=== PATIENT | female | born 2005 | race Caucasian/White ===

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

== ENCOUNTER → 2024-01-06 | Outpatient (CLI) | payer OTHER, SELFPAY ==
--- NOTE | 2024-01-06 13:57 | RAD_ITS ---
STUDY: X-RAY - LUMBAR SPINE REASON FOR EXAM: Female, 18 years old. LBP TECHNIQUE: 4 view(s) of the lumbar spine were obtained including oblique views. COMPARISON: None FINDINGS: Normal lumbar lordosis. There is a minimal dextroscoliosis of the lumbar spine. There is a normal alignment of the vertebrae. Normal vertebral bodies and endplates. Normal disc space heights. The soft tissue structures are unremarkable. RAD/L/S Spine Min 4 Views IMPRESSION: Minimal dextroscoliosis. Electronically Signed: Tomas Bowers MD at 13:50 EDT ,
== END | disposition home or self-care (01) ==
LOC: MTRAD 13:56
PROVIDERS: PCP Family Medicine; Referring Provider Family Medicine; Visit Provider Family Medicine
DX: M54.50 Low back pain, unspecified (principal)
CPT/HCPCS: 72110

== ENCOUNTER → 2024-07-06 | Outpatient (CLI) | payer OTHER, SELFPAY ==
[2024-07-06 11:54] LABS: Estradiol 54.8 pg/mL; Follicle Stimulating Hormone 5.2 mIU/mL; Hemoglobin A1c 5.1 % (3.8-5.6); Luteinizing Hormone 9.4 mIU/mL; T4 Free Direct 0.93 ng/dL (0.76-1.46)
[2024-07-07 04:08] LABS: PROGESTERONE 0.1 ng/mL (.)
[2024-07-07 10:10] LABS: Insulin Level 15.3 uIU/mL (2.6-24.9)
== END | disposition home or self-care (01) ==
LOC: LAB 10:22
PROVIDERS: PCP Family Medicine; Referring Provider Family Medicine; Visit Provider Family Medicine
DX: E28.2 Polycystic ovarian syndrome (principal); N92.0 Excessive and frequent menstruation with regular cycle
CPT/HCPCS: 36415; 82533; 82627; 82670; 83001; 83002; 83036; 83525; 84144; 84403; 84439; 84443; 82626

== ENCOUNTER → 2024-08-19 | Outpatient (CLI) | payer OTHER, SELFPAY ==
[2024-08-19 12:14] LABS: Absolute Lymphocyte Count 1.97 X10^3/uL (0.83-4.51); Absolute Neutrophil Count 4.8 X10^3/uL (2.0-7.7); Basophil# 0.03 X10^3/uL; Basophil% 0.4 % (0-1); Eosinophil# 0.14 X10^3/uL; Eosinophils% 1.9 % (0-5); Hematocrit 42.4 % (37-47); Hemoglobin 13.4 g/dL (12.0-15.0); Lymphocyte # 1.97 X10^3/ul (0.83-4.51); Lymphocyte % 26.6 % (19-41); Mean Corp Hgb Conc 31.6 g/dL (32-36); Mean Corpuscular Hgb 26.2 pg (27.0-32.0); Mean Corpuscular Volume 82.8 fL (81-99); Mean Platelet Vol. 10.2 fl (6.2-12.0); Monocyte# 0.48 X10^3/uL; Monocyte% 6.5 % (0-10); NRBC Flagged by Analyzer 0 % (0-5); Neutrophil # 4.78 X10^3/uL (2.7-7.7); Neutrophil % 64.5 % (47-70); Platelet Count 466 K/mm3 (150-450); RBC Distribution Width CV 14.1 % (11.6-14.6); RBC Distribution Width SD 42.5 fl (35.1-43.9); Red Blood Count 5.12 M/mm3 (4.2-5.4); White Blood Count 7.4 K/mm3 (4.4-11.0)
[2024-08-19 12:41] LABS: ALB/GLOB Ratio 0.8 RATIO (0.9-2.4); AST(SGOT) 16 U/L (15-37); Alanine Aminotransfer ALT/SGPT 20 U/L (13-56); Albumin, Serum 3.5 g/dL (3.2-5.0); Alkaline Phosphatase 122 U/L (45-117); Anion Gap 6 (5-15); BUN 5 mg/dL (7-18); BUN/Creat Ratio 6.9 RATIO (10-20); Chloride 108 mmol/L (98-107); Creatinine, Serum 0.73 mg/dL (0.55-1.02); EST Glomerular Filtration Rate 108 mL/min (>60); Est Glom Filt Rate - Afr Amer 131 mL/min (>60); Globulin 4.2 g/dL (2.2-4.2); Glucose 92 mg/dL (74-106); Potassium 3.9 mmol/L (3.5-5.1); Protein, Total 7.7 g/dL (6.4-8.2); Sodium Level 139 mmol/L (136-145)
[2024-08-20 00:35] LABS: Vitamin D,25 Hydroxy 11.6 ng/mL
== END | disposition home or self-care (01) ==
LOC: BWCLAB 11:19
PROVIDERS: Nurse Practitioner Family; PCP Family Medicine; Referring Provider Advanced Practice Midwife; Visit Provider Advanced Practice Midwife
DX: Z13.21 Encounter for screening for nutritional disorder (principal); N91.2 Amenorrhea, unspecified
CPT/HCPCS: 36415; 80053; 82306; 85025

== ENCOUNTER → 2024-08-24 | Outpatient (CLI) | payer OTHER, SELFPAY ==
--- NOTE | 2024-08-24 17:49 | US_ITS ---
STUDY: ULTRASOUND OF THE FEMALE PELVIS - COMPLETE REASON FOR EXAM: Female, 19 years old. amenorrhea LMP: 08/14/2024 TECHNIQUE: Transabdominal and Transvaginal TECHNICAL QUALITY: Adequate. COMPARISON: None. FINDINGS: The uterus is anteverted and is in a midline position. The uterus measures 6.6 x 4.9 x 3.1 cm. Normal uterine cervix. The endometrium measures 3 mm in thickness, and is hyperechoic. There is no demonstrated endometrial mass. There is no demonstrated myometrial mass. I.U.D. - The patient does not have an I.U.D. The right ovary is visualized. The right ovary measures 2.9 x 2.0 x 2.7 cm. There is no right ovarian cyst or ovarian mass. There is no visualized right adnexal mass or complex lesion. There is normal arterial and normal venous vascularity. The left ovary is visualized. The left ovary measures 3.5 x 1.9 x 1.9 cm. There is no left ovarian cyst or ovarian mass. There is no visualized left adnexal mass or complex lesion. There is normal arterial and normal venous vascularity. There is no fluid in the cul-de-sac. The pre void volume of the bladder was ml. The post void volume of the bladder was ml. Polycystic ovary disease: No. US/Pelvic w/ Transvaginal IMPRESSION: Normal female pelvis. Electronically Signed: Kamron Newton MD at 13:10 EST ,
== END | disposition home or self-care (01) ==
PROVIDERS: PCP Family Medicine; Referring Provider Nurse Practitioner Family; Visit Provider Nurse Practitioner Family
DX: N91.2 Amenorrhea, unspecified (principal)
CPT/HCPCS: 76830; 76856

== ENCOUNTER → 2024-09-30 | Outpatient (CLI) | payer OTHER, SELFPAY ==
[2024-09-30 11:14] LABS: Absolute Lymphocyte Count 2.22 X10^3/uL (0.83-4.51); Absolute Neutrophil Count 4.8 X10^3/uL (2.0-7.7); Basophil# 0.06 X10^3/uL; Basophil% 0.8 % (0-1); Eosinophil# 0.16 X10^3/uL; Eosinophils% 2.1 % (0-5); Hematocrit 40.9 % (37-47); Hemoglobin 13.2 g/dL (12.0-15.0); Lymphocyte # 2.22 X10^3/ul (0.83-4.51); Lymphocyte % 28.6 % (19-41); Mean Corp Hgb Conc 32.3 g/dL (32-36); Mean Corpuscular Hgb 25.8 pg (27.0-32.0); Mean Platelet Vol. 10.1 fl (6.2-12.0); Monocyte# 0.53 X10^3/uL; Monocyte% 6.8 % (0-10); NRBC Flagged by Analyzer 0 % (0-5); Neutrophil # 4.77 X10^3/uL (2.7-7.7); Neutrophil % 61.3 % (47-70); Platelet Count 481 K/mm3 (150-450); RBC Distribution Width CV 13.4 % (11.6-14.6); RBC Distribution Width SD 38.7 fl (35.1-43.9); Red Blood Count 5.11 M/mm3 (4.2-5.4); White Blood Count 7.8 K/mm3 (4.4-11.0)
[2024-09-30 11:21] LABS: Prothrombin Time (Protime)PT. 13.2 SECONDS (11.7-14.9)
[2024-09-30 11:27] LABS: ALB/GLOB Ratio 0.8 RATIO (0.9-2.4); AST(SGOT) 11 U/L (15-37); Alanine Aminotransfer ALT/SGPT 20 U/L (13-56); Albumin, Serum 3.5 g/dL (3.2-5.0); Alkaline Phosphatase 130 U/L (45-117); Anion Gap 9 (5-15); BUN 10 mg/dL (7-18); BUN/Creat Ratio 12.8 RATIO (10-20); Calcium,Total 9.2 mg/dL (8.5-10.1); Chloride 107 mmol/L (98-107); Creatinine, Serum 0.78 mg/dL (0.55-1.02); EST Glomerular Filtration Rate 100 mL/min (>60); Est Glom Filt Rate - Afr Amer 120 mL/min (>60); Globulin 4.3 g/dL (2.2-4.2); Glucose 94 mg/dL (74-106); Potassium 3.8 mmol/L (3.5-5.1); Protein, Total 7.8 g/dL (6.4-8.2); Sodium Level 141 mmol/L (136-145)
== END | disposition home or self-care (01) ==
LOC: BWCLAB 10:46
PROVIDERS: PCP Family Medicine; Referring Provider Nurse Practitioner Family; Visit Provider Nurse Practitioner Family
DX: R79.89 Other specified abnormal findings of blood chemistry (principal)
CPT/HCPCS: 36415; 80053; 85025; 85610

== ENCOUNTER → 2024-10-28 | Outpatient (CLI) | payer OTHER, SELFPAY ==
[2024-10-28 12:08] LABS: Absolute Lymphocyte Count 1.88 X10^3/uL (0.83-4.51); Absolute Neutrophil Count 4.5 X10^3/uL (2.0-7.7); Basophil# 0.04 X10^3/uL; Basophil% 0.6 % (0-1); Eosinophil# 0.12 X10^3/uL; Eosinophils% 1.7 % (0-5); Hematocrit 41.8 % (37-47); Hemoglobin 13.4 g/dL (12.0-15.0); Lymphocyte # 1.88 X10^3/ul (0.83-4.51); Lymphocyte % 26.5 % (19-41); Mean Corp Hgb Conc 32.1 g/dL (32-36); Mean Corpuscular Hgb 25.9 pg (27.0-32.0); Mean Corpuscular Volume 80.7 fL (81-99); Monocyte# 0.49 X10^3/uL; Monocyte% 6.9 % (0-10); NRBC Flagged by Analyzer 0 % (0-5); Neutrophil # 4.54 X10^3/uL (2.7-7.7); Neutrophil % 63.9 % (47-70); Platelet Count 444 K/mm3 (150-450); RBC Distribution Width CV 14.6 % (11.6-14.6); RBC Distribution Width SD 42.5 fl (35.1-43.9); Red Blood Count 5.18 M/mm3 (4.2-5.4); White Blood Count 7.1 K/mm3 (4.4-11.0)
== END | disposition home or self-care (01) ==
PROVIDERS: Referring Provider Nurse Practitioner Family; Visit Provider Nurse Practitioner Family
DX: Z31.41 Encounter for fertility testing (principal); E28.2 Polycystic ovarian syndrome
CPT/HCPCS: 36415; 85025

== ENCOUNTER → 2024-11-14 | Outpatient (CLI) | payer OTHER, SELFPAY ==
[2024-11-15 08:08] LABS: PROGESTERONE 0.2 ng/mL (.)
== END | disposition home or self-care (01) ==
LOC: LAB 11:39
PROVIDERS: PCP Family Medicine; Referring Provider Nurse Practitioner Family; Visit Provider Nurse Practitioner Family
DX: Z31.41 Encounter for fertility testing (principal)
CPT/HCPCS: 36415; 84144

== ENCOUNTER 2025-07-12 20:06 | Emergency (ER) | payer OTHER, SELFPAY ==
[2025-07-12 20:08] VITALS: BP 133/86; PULSE 91; RESP 16; TEMP 36.2; O2SAT 100; BMI 42.3
--- NOTE | 2025-07-12 22:36 | EX.ED.UPPERE ---
HPI History of Present Illness Chief Complaint: Occup Expose Narrative Narrative: Chief complaint and HPI: 20-year-old female with past medical history of anxiety, depression, PCOS presents for evaluation of needlestick injury at work. 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 Blood was visible. She did wash her thumb with soap and water. She is up-to-date on vaccines. The source patient has no history of blood-borne pathogens. Review of systems: See HPI Medications: As listed on the chart Allergies: As listed on the chart PFSH: Per chart Vital signs: As listed on the chart. Reviewed. Physical exam: Gen: A&O x3, NAD Eyes: No sclera icterus, conjunctiva clear ENT: Moist mucous membranes CV: RRR, no murmurs Resp: Lungs CTA BL, no w/r/c Musc: Full range of motion of the right hand including the fingers and thumb, needle puncture site visualized in the left thumb pad without active bleeding, good capillary refill, sensation intact, radial and ulnar pulse +2 Psych: Cooperative, appropriate mood and affect PFSH PFSH Medical History Anxiety Polycystic ovaries History of frequent headaches Anemia PCOS (polycystic ovarian syndrome) FAST HRT RATE, HAD EKG, CLEARED BY CARDIOLOGY ADD (attention deficit disorder) Home Medications ?Medication ?Instructions ?Recorded ?Last Taken ?Type buspirone 5 mg tablet 5 mg PO BID 08/07/24 Unknown History cholecalciferol (vitamin D3) 25 1,000 unit PO QDAY 11/18/24 Unknown History mcg (1,000 unit) capsule citalopram 40 mg tablet 40 mg PO QDAY 11/18/24 Unknown History vits 168-iron 27 mg-folic 1 cap PO QDAY 11/18/24 Unknown History acid 800 mcg-omega3 235 mg capsule (One-A-Day -1) medroxyprogesterone 10 mg tablet 10 mg PO .COMPLEX 10 days #30 tabs 12/30/24 Unknown Rx Allergy/AdvReac Type Severity Reaction Status Date / Time No Known Allergies Allergy Verified 07/12/25 20:07 Family History Grandfather Myocardial infarction maternal Father Diabetes Grandmother Alcoholic Grandmother Breast cancer Diabetes Grandfather Hypertension Colon cancer High cholesterol Surgical History H/O adenoidectomy History of tonsillectomy Social History sexually active: Yes Smoking Status: Current every day smoker tobacco type: e-cigarettes Electronic Cigarette Use: with nicotine second hand exposure: No alcohol intake: never substance use type: does not use EXAM Physical Exam Const Vital Signs: 07/12/25 20:08 07/12/25 22:08 Temperature 97.1 F L Temperature Source Temporal Pulse Rate 91 Respiratory Rate 16 Respiratory Effort Normal Non-Labored Respiratory Pattern Normal Blood Pressure 133/86 H Blood Pressure Mean 101 Pulse Ox 100 Oxygen Delivery Method Room Air MDM MDM MDM Narrative Medical decision making narrative: 20-year-old female with past medical history of anxiety, depression, PCOS presents for evaluation of needlestick injury at work. Injury occurred at approximately 6:30 PM. 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 Blood was visible. She did wash her thumb with soap and water. She is up-to-date on vaccines. The source patient has no history of blood-borne pathogens. Patient will have postexposure labs drawn. She did require drug screen for her Worker's Compensation. I did speak with our staff about obtaining blood from the source patient. They state that it all depends on the facilities protocol and does not involve us in the emergency department. I did inform the patient of this. Given patient is up-to-date on vaccines and the source has known blood-borne pathogen's, patient will not be treated prophylactically. Follow-up with Worker's Compensation. She confirmed understand the plan. Patient able to discharge home. Impression: 1. Needlestick to left thumb 2. Injury at work Discharge Plan Triage Chief Complaint: Occup Expose ED Provider: Bryan Dewey Dx/Rx/DC Orders Prescriptions: No Action buspirone 5 mg tablet 5 mg PO BID citalopram 40 mg tablet 40 mg PO QDAY cholecalciferol (vitamin D3) 25 mcg (1,000 unit) capsule 1,000 unit PO QDAY One-A-Day -1 27 mg iron- 800 mcg-235 mg capsule 1 cap PO QDAY medroxyprogesterone 10 mg tablet 10 mg PO .COMPLEX 10 Days Qty: 30 3RF Rx Instructions: 10 mg orally daily first 10 days each month; Primary Care Provider: Dominick Adam Referrals: Dominick Adam DO [Primary Care Provider, Family Practice] Print Language: Mongolian
[2025-07-12 22:49] VITALS: BP 121/75; PULSE 88; RESP 16; TEMP 36.6; O2SAT 97
[2025-07-12 23:19] LABS: HIV Nonreactive (Nonreactive); Hepatitis B Surface Antigen Nonreactive (Nonreactive); Hepatitis C Antibody Nonreactive (Nonreactive)
== END 2025-07-12 22:54 | disposition home or self-care (01) ==
LOC: ED 22:54
PROVIDERS: Emergency Provider Surgery; PCP Family Medicine; Visit Provider Surgery
DX: S61.032A Puncture wound without foreign body of left thumb without damage to nail, initial encounter (principal); F41.9 Anxiety disorder, unspecified; F17.210 Nicotine dependence, cigarettes, uncomplicated; W46.1XXA Contact with contaminated hypodermic needle, initial encounter; Y99.0 Civilian activity done for income or pay
CPT/HCPCS: 36415; 86703; 86706; 86803; 87340; 99282